=== PATIENT | female | born 1980 | race Caucasian/White ===

== ENCOUNTER 2020-08-17 10:49 | Emergency (ER) | payer OTHER, BC, MEDICAID, SELFPAY ==
[2020-08-17 11:18] VITALS: BP 115/70; PULSE 93; RESP 18; TEMP 36.7; O2SAT 99
[2020-08-17 11:33] VITALS: BP 115/70; PULSE 93; RESP 18; TEMP 36.7; O2SAT 99
--- NOTE | 2020-08-17 11:34 | ED.URI ---
HPI - URI/Sore Throat General Chief Complaint: Upper Respiratory Infection Stated Complaint: fever, aches headache Time Seen by Provider: 08/17/20 11:22 Source: patient and RN notes reviewed Mode of arrival: ambulatory Limitations: no limitations History of Present Illness HPI Narrative: Patient presents today complaining of a 3-day history of rhinorrhea, sneezing, chest congestion without cough, body aches. She started with low-grade fever that reached 101 this morning. Denies shortness of breath, sore throat, ear pain, loss of taste or smell. 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 She was last at work 3 days ago. She has been taking aspirin, DayQuil, and NyQuil with mild relief. She has not yet been vaccinated for COVID-19. No known exposure to COVID-19. MD elicited complaint: fever, rhinorrhea and nasal congestion Related Data Home Medications Medication Instructions Recorded Confirmed No Home Medications 08/17/20 08/17/20 Allergies Allergy/AdvReac Type Severity Reaction Status Date / Time levofloxacin Allergy Unknown Hives / Verified 08/17/20 11:33 Red Face Penicillins Allergy Unknown Rash Verified 08/17/20 11:33 sulfamethoxazole Allergy Unknown Verified 08/17/20 11:33 [From Bactrim] trimethoprim [From Bactrim] Allergy Unknown Verified 08/17/20 11:33 Review of Systems Review of Systems: Narrative: CONSTITUTIONAL: Denies chills, or sweats.+ Fever, body aches EYES: Denies visual changes, redness, or discharge. ENT: Denies sore throat, or otalgia. + Rhinorrhea, congestion, sneezing CARDIOVASCULAR: Denies chest pain, palpitations, or edema. RESPIRATORY: Denies cough or dyspnea. GASTROINTESTINAL: Denies abdominal pain, nausea, vomiting, or diarrhea. GENITOURINARY: Denies dysuria or hematuria. SKIN: Denies rash, itching, or wounds. MUSCULOSKELETAL: Denies back pain, joint pain, or myalgia. NEUROLOGIC: Denies headache, numbness, tingling, or weakness. PSYCH: Denies depression or anxiety. FOR[facility]LY [facility], [facility] Surgical History Surgical History (Updated 08/17/20 @ 13:38 by Cynthia Ellis, [employer], [employer]) History of appendectomy Comments At time of signature, I have reviewed and agree with nursing past medical, surgical, social and family history unless otherwise noted. Please see nursing chart for further information. There is no relevant family history pertinent to the presenting complaint Exam Narrative: Exam Narrative: GENERAL: Mildly ill-appearing, well-nourished, and in no acute distress. HEAD: Normocephalic, atraumatic. EYES: EOMI. No redness or drainage. Conjunctivae normal. ENT: Mucous membranes pink and moist. Nares congested. No rhinorrhea. TMs normal bilaterally. Throat normal. Uvula midline. NECK: Normal AROM. Supple. Bilateral anterior cervical chain lymphadenopathy. CHEST: No respiratory distress. Clear to auscultation. HEART: Regular rate and rhythm. No murmur appreciated. Normal peripheral pulses. EXTREMITIES: Normal range of motion. No edema. SKIN: Warm, dry, no rash. Capillary refill normal. Normal skin turgor. NEURO: No focal deficits. Alert and oriented x3. Gait steady. PSYCH: Normal affect. No signs of depression or anxiety. Course Vital Signs Vital signs: Vital Signs Temperature 98.1 F 08/17/20 11:18 Pulse Rate 93 08/17/20 11:18 Respiratory Rate 18 08/17/20 11:18 Blood Pressure 115/70 08/17/20 11:18 Pulse Oximetry 99 08/17/20 11:18 Temperature 98.1 F 08/17/20 11:33 Pulse Rate 93 08/17/20 11:33 Respiratory Rate 18 08/17/20 11:33 Blood Pressure 115/70 08/17/20 11:33 Pulse Oximetry 99 08/17/20 11:33 Reviewed MDM - URI/Sore Throat Differential Diagnosis Differential diagnosis: Likely upper respiratory infection, sinusitis, viral infection, bronchitis, influenza and other (Strep throat, COVID-19) Lab Data Attestation: I reviewed the patient's lab results. Labs: Lab Results 08/17/20 Range/Units 11:18 POC SARS C
== END 2020-08-17 11:40 | disposition home or self-care (01) ==
PROVIDERS: Emergency Provider Nurse Practitioner
DX: U07.1 COVID-19 (principal)
CPT/HCPCS: 87081; 87426; 87804; 87880; 99213; C9803; G0463